=== PATIENT | female | born 1970 | race African-American/Black ===

== ENCOUNTER 2017-01-09 13:46 | Emergency (ER) | payer MEDICAID ==
[~2017-01-09] VITALS: Ht 175.3 cm; Wt 119.0 kg
[~2017-01-09 13:46] MED LIST: ATEN100T PO; FURO-152 PO; GABA300T25 PO; LORA-250 PO
[2017-01-09] MEDS ORDERED: MORPHINE SULFATE 4 MG/ML CPJ (NOT FOR IM USE) IV STA (15:51)
[2017-01-09] MEDS ORDERED: ONDANSETRON HCL 4MG/2ML VIAL IV STA (15:51)
[2017-01-09] MEDS ORDERED: SODIUM CHLORIDE 0.9% 1000ML BAG (SEPSIS BOLUS) IV ONE (16:00)
[2017-01-09 16:19] LABS: BASOPHILS % 0.7 % (0.0-2.0); EOSINOPHILS % 0.5 % (0.0-5.0); HEMOGLOBIN. 9.5 g/dL (12.0-16.0); MEAN CORPUSCULAR HEMOGLOBIN 21.2 pg (28.0-32.0); MEAN CORPUSCULAR HGB CONC 30.7 g/dL (31.0-37.0); MEAN PLATELET VOLUME 8.3 fl (7.4-10.4); NEUTROPHILS % 77.8 % (40.0-76.0); PLATELET 283 x1000/uL (130-400); RED CELL DISTRIBUTION WIDTH 18.1 % (11.6-14.6); WHITE BLOOD COUNT 7.8 x1000/uL (4.5-11.0)
[2017-01-09 16:20] LABS: CHLORIDE 106 mEq/L (98-107); INDEX HEMOLYSI 1 (1-3); INDEX ICTERIC 1 (1-4); INDEX LIPEMIC 1 (1-3)
[2017-01-09 16:22] LABS: PROTHROMBIN TIME 10.8 sec
[2017-01-09 16:24] LABS: ALBUMIN 3.3 g/dL (3.4-5.0); ANION GAP 12; CALCIUM 8.8 mg/dL (8.5-10.1); CARBON DIOXIDE 26 mEq/L (21-32); UREA NITROGEN BLOOD 6 mg/dL (7-21)
[2017-01-09 16:25] LABS: HCG SCREEN NEGATIVE
[2017-01-09 16:26] LABS: ADD RBC MORPHOLOGY YES; DIFFERENTIAL COMMENT 1
[2017-01-09 16:29] LABS: ALANINE AMINOTRANSFERASE 13 IU/L (13-61); eGFR > 60 mL/min (>60)
[2017-01-09 17:02] LABS: ANISOCYTOSIS 1+
[2017-01-09 17:04] LABS: HYPOCHROMASIA 2+
[2017-01-09 17:05] LABS: PLATELET ESTIMATE NORMAL
[2017-01-09] MEDS ORDERED: MORPHINE SULFATE 4 MG/ML CPJ (NOT FOR IM USE) IV ONE (19:15)
[2017-01-09] MEDS ORDERED: DIPHENHYDRAMINE 50MG/ML VIAL IV ONE (19:15)
[2017-01-09] MEDS ORDERED: CEFTRIAXONE 1 G PREMIX 50 ML IV ONE (20:00)
[2017-01-09] MEDS ORDERED: MORPHINE SULFATE 2 MG/ML CPJ (NOT FOR IM USE) IV ONE (20:45)
[2017-01-09 20:50] VITALS: BP 147/90
== END 2017-01-09 21:20 | disposition home or self-care (01) ==
LOC: ER 14:52
DX: L03.116 Cellulitis of left lower limb (principal); L89.899 Pressure ulcer of other site, unspecified stage; I87.8 Other specified disorders of veins; I10 Essential (primary) hypertension; D68.59 Other primary thrombophilia; Z86.718 Personal history of other venous thrombosis and embolism; Z79.01 Long term (current) use of anticoagulants; Z79.899 Other long term (current) drug therapy; Z88.6 Allergy status to analgesic agent; Z98.84 Bariatric surgery status; Z90.49 Acquired absence of other specified parts of digestive tract
CPT/HCPCS: 36415; 71010; 73590; 80053; 83605; 84703; 85025; 85610; 87040; 87070; 87077; 87186; 87205; 93005; 96361; 96365; 96375; 96376; 99285; J0696; J1200; J2270; J2405; J7030; X7700; Z7610

== ENCOUNTER 2017-06-08 14:25 | Inpatient (IN) | payer MEDICAID ==
[~2017-06-08] VITALS: Ht 175.3 cm; Wt 135.2 kg
[~2017-06-08 14:25] MED LIST changes: +HYDR-519 PO; +RIVA20TA PO
[2017-06-08 19:03] LABS: BASOPHILS % 0.5 % (0.0-2.0); EOSINOPHILS % 0.3 % (0.0-5.0); HEMATOCRIT. 32.2 % (36.0-48.0); HEMOGLOBIN. 10.2 g/dL (12.0-16.0); LYMPHOCYTES % 12.4 % (20.0-50.0); MEAN CORPUSCULAR HEMOGLOBIN 22.9 pg (28.0-32.0); MEAN PLATELET VOLUME 7.8 fl (7.4-10.4); MONOCYTES % 7.3 % (2.0-8.0); NEUTROPHILS % 79.5 % (40.0-76.0); PLATELET 335 x1000/uL (130-400); RED BLOOD CELL COUNT 4.48 mill/uL (4.2-5.4); RED CELL DISTRIBUTION WIDTH 19.7 % (11.6-14.6)
[2017-06-08 19:09] LABS: PROTHROMBIN TIME 10.9 sec (9.4-11.6)
[2017-06-08 19:16] LABS: CARBON DIOXIDE 27 mEq/L (21-32); CHLORIDE 104 mEq/L (98-107)
[2017-06-08] MEDS ORDERED: ONDANSETRON HCL 4MG/2ML VIAL IV STA (19:45)
[2017-06-08] MEDS ORDERED: MORPHINE SULFATE 4 MG/ML CPJ (NOT FOR IM USE) IV STA (19:45)
[2017-06-08] MEDS ORDERED: DIPHENHYDRAMINE 50MG/ML VIAL IV ONE (20:00)
[2017-06-08] MEDS ORDERED: CLINDAMYCIN 600 MG in DEXTROSE 5% WATER 50 ML IV ONE (21:00)
[2017-06-08] MEDS ORDERED: PIPERACILLIN SODIUM/TAZOBACTAM 4.5 G in DEXT 5% WATER 100 ML IV SCH (21:00)
[2017-06-08] MEDS ORDERED: MORPHINE SULFATE 4 MG/ML CPJ (NOT FOR IM USE) IV ONE (22:45)
[2017-06-09] MEDS: MORPHINE SULFATE 2 MG/ML CPJ (NOT FOR IM USE) IV PRN ×4 (04:31→22:49)
[2017-06-09 05:00] VITALS: BP 146/77
[2017-06-09] MEDS: CLINDAMYCIN IV SCH ×3 (07:04→22:42)
[2017-06-09] MEDS: DEXTROSE 5% IV SCH ×3 (07:04→22:42)
[2017-06-09] MEDS: WATER IV SCH ×3 (07:04→22:42)
[2017-06-09] MEDS: HYDROCODONE/ACETAMINOPHEN 10/325MG TABLET PO PRN (07:15)
[2017-06-09 08:00] VITALS: BP 122/73
[2017-06-09] MEDS: RIVAROXABAN 20 MG TABLET PO SCH (08:55)
[2017-06-09] MEDS: ATENOLOL 100 MG TABLET PO SCH (08:55)
[2017-06-09 12:00] VITALS: BP 122/77
[2017-06-09] MEDS ORDERED: KETOROLAC 30MG/ML VIAL IV PRN (15:45)
[2017-06-09 16:00] VITALS: BP 134/76
[2017-06-09] MEDS: DIPHENHYDRAMINE 50MG/ML VIAL IV PRN ×2 (16:06→22:50)
[2017-06-09 20:00] VITALS: BP 119/64
[2017-06-10] VITALS: BP 120/78
[2017-06-10] MEDS: DIPHENHYDRAMINE 50MG/ML VIAL IV PRN ×4 (03:05→21:24)
[2017-06-10] MEDS: MORPHINE SULFATE 2 MG/ML CPJ (NOT FOR IM USE) IV PRN ×5 (03:05→21:08)
[2017-06-10 04:00] VITALS: BP 123/69
[2017-06-10 06:12] VITALS: BP 123/69
[2017-06-10] MEDS: WATER IV SCH ×3 (06:12→21:41)
[2017-06-10] MEDS: CLINDAMYCIN IV SCH ×3 (06:12→21:41)
[2017-06-10] MEDS: DEXTROSE 5% IV SCH ×3 (06:12→21:41)
[2017-06-10 08:00] VITALS: BP 149/86
[2017-06-10] MEDS: RIVAROXABAN 20 MG TABLET PO SCH (08:26)
[2017-06-10] MEDS: ATENOLOL 100 MG TABLET PO SCH (08:30)
[2017-06-10] MEDS: HYDROCODONE/ACETAMINOPHEN 10/325MG TABLET PO PRN (14:20)
[2017-06-10 16:00] VITALS: BP 134/74
[2017-06-10 20:00] VITALS: BP 124/78
[2017-06-10] MEDS: SODIUM HYPOCHLORITE (0.25%) 480ML SOLUTION (HALF STRENGTH) TOP SCH (21:00)
[2017-06-10] MEDS: SILVER SULFADIAZINE 1% CREAM 50GM TOP SCH (21:00)
[2017-06-11] VITALS: BP 128/88
[2017-06-11] MEDS: MORPHINE SULFATE 2 MG/ML CPJ (NOT FOR IM USE) IV PRN ×5 (02:58→21:10)
[2017-06-11] MEDS: DIPHENHYDRAMINE 50MG/ML VIAL IV PRN ×4 (02:59→21:09)
[2017-06-11 04:00] VITALS: BP 115/58
[2017-06-11] MEDS: DEXTROSE 5% IV SCH ×3 (06:23→21:30)
[2017-06-11] MEDS: WATER IV SCH ×3 (06:23→21:30)
[2017-06-11] MEDS: CLINDAMYCIN IV SCH ×3 (06:23→21:30)
[2017-06-11 08:00] VITALS: BP 136/78
[2017-06-11] MEDS: RIVAROXABAN 20 MG TABLET PO SCH ×3 (08:21→17:03)
[2017-06-11] MEDS: ATENOLOL 100 MG TABLET PO SCH (08:22)
[2017-06-11] MEDS: SILVER SULFADIAZINE 1% CREAM 50GM TOP SCH (13:00)
[2017-06-11] MEDS: SODIUM HYPOCHLORITE (0.25%) 480ML SOLUTION (HALF STRENGTH) TOP SCH (13:17)
[2017-06-11] MEDS: HYDROCODONE/ACETAMINOPHEN 10/325MG TABLET PO PRN ×2 (13:27→18:09)
[2017-06-11 16:00] VITALS: BP 127/74
[2017-06-11 20:00] VITALS: BP 140/76
[2017-06-12] VITALS: BP 126/60
[2017-06-12] MEDS: MORPHINE SULFATE 2 MG/ML CPJ (NOT FOR IM USE) IV PRN ×5 (01:06→20:54)
[2017-06-12] MEDS: HYDROCODONE/ACETAMINOPHEN 10/325MG TABLET PO PRN ×4 (01:07→20:40)
[2017-06-12 04:00] VITALS: BP 135/80
[2017-06-12] MEDS: CLINDAMYCIN IV SCH ×2 (05:54→15:37)
[2017-06-12] MEDS: WATER IV SCH ×2 (05:54→15:37)
[2017-06-12] MEDS: DIPHENHYDRAMINE 50MG/ML VIAL IV PRN ×3 (05:54→20:47)
[2017-06-12] MEDS: DEXTROSE 5% IV SCH ×2 (05:54→15:37)
[2017-06-12 07:18] LABS: BASOPHILS % 0.4 % (0.0-2.0); EOSINOPHILS % 3.9 % (0.0-5.0); HEMATOCRIT. 29.6 % (36.0-48.0); HEMOGLOBIN. 9.4 g/dL (12.0-16.0); LYMPHOCYTES % 17.3 % (20.0-50.0); MEAN CORPUSCULAR HEMOGLOBIN 23.2 pg (28.0-32.0); MEAN CORPUSCULAR VOLUME 72.5 fL (81.0-99.0); MEAN PLATELET VOLUME 7.9 fl (7.4-10.4); MONOCYTES % 13.3 % (2.0-8.0); NEUTROPHILS % 65.1 % (40.0-76.0); PLATELET 286 x1000/uL (130-400); RED BLOOD CELL COUNT 4.08 mill/uL (4.2-5.4); RED CELL DISTRIBUTION WIDTH 18.9 % (11.6-14.6)
[2017-06-12 07:34] LABS: CARBON DIOXIDE 28 mEq/L (21-32); CHLORIDE 102 mEq/L (98-107)
[2017-06-12 08:00] VITALS: BP 123/76
[2017-06-12] MEDS: SODIUM HYPOCHLORITE (0.25%) 480ML SOLUTION (HALF STRENGTH) TOP SCH (09:00)
[2017-06-12] MEDS: SILVER SULFADIAZINE 1% CREAM 50GM TOP SCH (09:00)
[2017-06-12] MEDS: ATENOLOL 100 MG TABLET PO SCH (09:03)
[2017-06-12] MEDS: RIVAROXABAN 20 MG TABLET PO SCH (09:03)
[2017-06-12 12:00] VITALS: BP 120/80
[2017-06-12] MEDS ORDERED: CYCLOBENZAPRINE 10MG TABLET PO PRN (12:30)
[2017-06-12] MEDS: GABAPENTIN 300MG CAPSULE PO SCH ×2 (15:35→23:19)
[2017-06-12] MEDS ORDERED: MEROPENEM 500 MG in SODIUM CHLORIDE 0.9% 50 ML IV SCH (15:45)
[2017-06-12 16:00] VITALS: BP 116/62
[2017-06-12 20:00] VITALS: BP 117/70
[2017-06-12] MEDS: CEFEPIME 2,000 MG in DEXT 5% WATER 100 ML IV SCH (23:20)
[2017-06-13] VITALS: BP 125/71
[2017-06-13] MEDS: MORPHINE SULFATE 2 MG/ML CPJ (NOT FOR IM USE) IV PRN ×5 (01:02→20:33)
[2017-06-13] MEDS: HYDROCODONE/ACETAMINOPHEN 10/325MG TABLET PO PRN ×4 (02:00→18:04)
[2017-06-13 04:00] VITALS: BP 138/79
[2017-06-13] MEDS: GABAPENTIN 300MG CAPSULE PO SCH ×2 (05:41→20:31)
[2017-06-13] MEDS: DIPHENHYDRAMINE 50MG/ML VIAL IV PRN ×2 (05:50→15:32)
[2017-06-13] MEDS: CEFEPIME 2,000 MG in DEXT 5% WATER 100 ML IV SCH ×2 (05:52→17:50)
[2017-06-13 08:00] VITALS: BP 110/67
[2017-06-13] MEDS: SODIUM HYPOCHLORITE (0.25%) 480ML SOLUTION (HALF STRENGTH) TOP SCH (08:51)
[2017-06-13] MEDS: SILVER SULFADIAZINE 1% CREAM 50GM TOP SCH (08:52)
[2017-06-13] MEDS: ATENOLOL 100 MG TABLET PO SCH (09:00)
[2017-06-13] MEDS: RIVAROXABAN 20 MG TABLET PO SCH (10:03)
[2017-06-13 12:00] VITALS: BP 123/75
[2017-06-13] MEDS ORDERED: SODIUM BICARBONATE 4% (2.4MEQ) 5ML VIAL IV ONE (14:27)
[2017-06-13] MEDS ORDERED: LIDOCAINE HCL 1% 20ML VIAL (Pyxis) INJ ONE (14:27)
[2017-06-13 16:00] VITALS: BP 125/82
[2017-06-13 20:00] VITALS: BP 140/82
[2017-06-14] VITALS: BP 113/57
[2017-06-14 04:00] VITALS: BP 135/85
[2017-06-14] MEDS: DIPHENHYDRAMINE 50MG/ML VIAL IV PRN ×2 (04:49→18:05)
[2017-06-14] MEDS: MORPHINE SULFATE 2 MG/ML CPJ (NOT FOR IM USE) IV PRN ×5 (04:54→22:49)
[2017-06-14] MEDS: GABAPENTIN 300MG CAPSULE PO SCH ×3 (05:11→22:48)
[2017-06-14] MEDS: CEFEPIME 2,000 MG in DEXT 5% WATER 100 ML IV SCH ×2 (05:11→17:58)
[2017-06-14 08:00] VITALS: BP 105/75
[2017-06-14] MEDS: RIVAROXABAN 20 MG TABLET PO SCH (08:47)
[2017-06-14] MEDS: ATENOLOL 100 MG TABLET PO SCH (08:47)
[2017-06-14] MEDS: SILVER SULFADIAZINE 1% CREAM 50GM TOP SCH (08:52)
[2017-06-14] MEDS: SODIUM HYPOCHLORITE (0.25%) 480ML SOLUTION (HALF STRENGTH) TOP SCH (09:00)
[2017-06-14] MEDS ORDERED: HYDROCODONE/ACETAMINOPHEN 10/325MG TABLET PO PRN (10:45)
[2017-06-14] MEDS ORDERED: LORAZEPAM 2MG/ML CPJ IV NR (10:51)
[2017-06-14] MEDS ORDERED: SODIUM CHLORIDE 0.9% 10ML VIAL ONE (12:12)
[2017-06-14] MEDS ORDERED: IOHEXOL-350 100 ML BOTTLE ONE (12:12)
[2017-06-14] MEDS: CYCLOBENZAPRINE 10MG TABLET PO PRN ×2 (12:39→22:49)
[2017-06-14 12:48] VITALS: BP 110/69
[2017-06-14 17:21] VITALS: BP 130/75
[2017-06-14 20:00] VITALS: BP 126/76
[2017-06-15] MEDS: DIPHENHYDRAMINE 50MG/ML VIAL IV PRN ×3 (00:41→17:51)
[2017-06-15] MEDS: MORPHINE SULFATE 2 MG/ML CPJ (NOT FOR IM USE) IV PRN ×4 (04:33→17:20)
[2017-06-15 04:35] VITALS: BP 121/76
[2017-06-15] MEDS: CEFEPIME 2,000 MG in DEXT 5% WATER 100 ML IV SCH ×2 (06:00→17:19)
[2017-06-15] MEDS: GABAPENTIN 300MG CAPSULE PO SCH ×2 (07:51→13:14)
[2017-06-15] MEDS: RIVAROXABAN 20 MG TABLET PO SCH (08:27)
[2017-06-15] MEDS: ATENOLOL 100 MG TABLET PO SCH (08:27)
[2017-06-15] MEDS ORDERED: GABA300T25 PO (08:45)
[2017-06-15] MEDS ORDERED: CYCL10TA7 PO (08:45)
[2017-06-15] MEDS: CYCLOBENZAPRINE 10MG TABLET PO PRN (08:54)
[2017-06-15 09:00] VITALS: BP 124/74
[2017-06-15] MEDS: SILVER SULFADIAZINE 1% CREAM 50GM TOP SCH (10:33)
[2017-06-15] MEDS: SODIUM HYPOCHLORITE (0.25%) 480ML SOLUTION (HALF STRENGTH) TOP SCH (10:34)
[2017-06-15 12:50] VITALS: BP 125/79
[2017-06-15 17:12] VITALS: BP 121/58
[2017-06-15 18:51] VITALS: BP 121/73
== END 2017-06-15 19:15 | disposition home health service (06) | DRG 383 ==
LOC: ER 19:44 → 6EST 23:10 → ENRESERV 06-09 00:54
PROVIDERS: ADMIT Internal Medicine; ATTEND Internal Medicine
PROC: 02HV33Z Insertion of Infusion Device into Superior Vena Cava, Percutaneous Approach (ICD-10-PCS; principal; 2017-06-13)
PROC: B548ZZA Ultrasonography of Superior Vena Cava, Guidance (ICD-10-PCS; 2017-06-13)
PROC: B5181ZA Fluoroscopy of Superior Vena Cava using Low Osmolar Contrast, Guidance (ICD-10-PCS; 2017-06-13)
DX: L03.116 Cellulitis of left lower limb (principal); D68.59 Other primary thrombophilia; L97.929 Non-pressure chronic ulcer of unspecified part of left lower leg with unspecified severity; E44.1 Mild protein-calorie malnutrition; Z68.41 Body mass index [BMI] 40.0-44.9, adult; I73.9 Peripheral vascular disease, unspecified; I87.2 Venous insufficiency (chronic) (peripheral); I10 Essential (primary) hypertension; E66.9 Obesity, unspecified; Z91.19 Patient's noncompliance with other medical treatment and regimen; Z88.1 Allergy status to other antibiotic agents; Z86.711 Personal history of pulmonary embolism; Z86.718 Personal history of other venous thrombosis and embolism; Z88.6 Allergy status to analgesic agent; Z79.899 Other long term (current) drug therapy; Z79.01 Long term (current) use of anticoagulants; Z90.49 Acquired absence of other specified parts of digestive tract; Z98.84 Bariatric surgery status
CPT/HCPCS: 36415; 36569; 73590; 75635; 76937; 77001; 80048; 80053; 85025; 85610; 87040; 87070; 87077; 87186; 87205; 96365; 96367; 96375; 96376; 99285; A4216; C1725; C1893; J0692; J1200; J2060; J2270; J2405; J2543; J3490; J7040; J7050; J7060; Q9967

== ENCOUNTER 2017-07-14 09:38 | Emergency (ER) | payer MEDICAID ==
[~2017-07-14] VITALS: Ht 162.6 cm; Wt 68.0 kg
[~2017-07-14 09:38] MED LIST changes: +CYCL10TA7 PO
[2017-07-14] MEDS ORDERED: MORPHINE SULFATE 4 MG/ML CPJ (NOT FOR IM USE) IV STA (09:58)
[2017-07-14] MEDS ORDERED: ONDANSETRON HCL 4MG/2ML VIAL IV STA (09:58)
[2017-07-14] MEDS ORDERED: SODIUM CHLORIDE 0.9% 1,000 ML IV ONE (09:58)
[2017-07-14 10:20] LABS: BASOPHILS % 1.4 % (0.0-2.0); EOSINOPHILS % 7.7 % (0.0-5.0); HEMATOCRIT. 32.2 % (36.0-48.0); HEMOGLOBIN. 10.2 g/dL (12.0-16.0); LYMPHOCYTES % 29.7 % (20.0-50.0); MEAN CORPUSCULAR HEMOGLOBIN 23.3 pg (28.0-32.0); MEAN CORPUSCULAR VOLUME 73.4 fL (81.0-99.0); MEAN PLATELET VOLUME 8.6 fl (7.4-10.4); MONOCYTES % 13.7 % (2.0-8.0); NEUTROPHILS % 47.5 % (40.0-76.0); PLATELET 257 x1000/uL (130-400); RED BLOOD CELL COUNT 4.38 mill/uL (4.2-5.4); RED CELL DISTRIBUTION WIDTH 20.1 % (11.6-14.6)
[2017-07-14 10:30] LABS: PARTIAL THROMBOPLASTIN TIME 26.3 sec (23.4-31.0); PROTHROMBIN TIME 10.7 sec (9.4-11.6)
[2017-07-14 10:39] LABS: CARBON DIOXIDE 27 mEq/L (21-32); CHLORIDE 101 mEq/L (98-107); TROPONIN I < 0.02 ng/mL (0.00-0.04)
[2017-07-14] MEDS ORDERED: HYDROMORPHONE HCL/PF 2MG/ML CPJ IV ONE (11:15)
[2017-07-14] MEDS ORDERED: IOHEXOL-350 100 ML BOTTLE ONE (11:30)
[2017-07-14] MEDS ORDERED: SODIUM CHLORIDE 0.9% 10ML VIAL ONE (11:30)
[2017-07-14 15:12] VITALS: BP 137/76
== END 2017-07-14 17:26 | disposition left against medical advice (07) ==
LOC: ER 09:38 → EDBEDREQ 14:26 → ENRESERV 15:41 → CANRESERV 15:41 → ER 17:26 → ENRESERV 07-15 02:06 → CANRESERV 07-15 02:06 → CANBEDREQ 07-15 07:00
DX: R07.9 Chest pain, unspecified (principal); I10 Essential (primary) hypertension; G62.9 Polyneuropathy, unspecified; D68.59 Other primary thrombophilia; Z98.84 Bariatric surgery status; Z90.49 Acquired absence of other specified parts of digestive tract; Z88.6 Allergy status to analgesic agent; Z88.1 Allergy status to other antibiotic agents; Z86.711 Personal history of pulmonary embolism; Z86.718 Personal history of other venous thrombosis and embolism; Z79.01 Long term (current) use of anticoagulants
CPT/HCPCS: 36415; 71010; 71275; 80053; 83605; 83880; 84484; 85025; 85610; 85730; 87040; 93005; 93970; 96361; 96374; 96375; 99285; A4216; J1170; J2270; J2405; J7030; Q9967

== ENCOUNTER 2017-07-16 08:02 | Emergency (ER) | payer MEDICAID ==
[~2017-07-16] VITALS: Ht 175.3 cm; Wt 121.0 kg
[2017-07-16] MEDS ORDERED: MORPHINE SULFATE 4 MG/ML CPJ (NOT FOR IM USE) IV STA (08:56)
[2017-07-16] MEDS ORDERED: ONDANSETRON HCL 4MG/2ML VIAL IV STA (08:56)
[2017-07-16 09:31] LABS: BASOPHILS % 0.5 % (0.0-2.0); EOSINOPHILS % 4.1 % (0.0-5.0); HEMATOCRIT. 30.1 % (36.0-48.0); HEMOGLOBIN. 9.5 g/dL (12.0-16.0); LYMPHOCYTES % 21.8 % (20.0-50.0); MEAN CORPUSCULAR HEMOGLOBIN 23.3 pg (28.0-32.0); MEAN CORPUSCULAR VOLUME 74.1 fL (81.0-99.0); MEAN PLATELET VOLUME 8.1 fl (7.4-10.4); MONOCYTES % 6.2 % (2.0-8.0); NEUTROPHILS % 67.4 % (40.0-76.0); PLATELET 194 x1000/uL (130-400); RED BLOOD CELL COUNT 4.07 mill/uL (4.2-5.4); RED CELL DISTRIBUTION WIDTH 19.8 % (11.6-14.6)
[2017-07-16 09:46] LABS: CARBON DIOXIDE 28 mEq/L (21-32); CHLORIDE 106 mEq/L (98-107); TROPONIN I < 0.02 ng/mL (0.00-0.04)
[2017-07-16] MEDS ORDERED: DIPHENHYDRAMINE 50MG/ML VIAL ONE (10:57)
[2017-07-16] MEDS ORDERED: DIPHENHYDRAMINE 50MG/ML VIAL IV ONE (11:00)
[2017-07-16 12:21] VITALS: BP 132/78
== END 2017-07-16 12:24 | disposition home or self-care (01) ==
LOC: ER 08:30
DX: R07.81 Pleurodynia (principal); I10 Essential (primary) hypertension; J84.9 Interstitial pulmonary disease, unspecified; Z86.711 Personal history of pulmonary embolism; Z86.718 Personal history of other venous thrombosis and embolism; Z79.01 Long term (current) use of anticoagulants; Z98.84 Bariatric surgery status; Z88.6 Allergy status to analgesic agent; Z88.3 Allergy status to other anti-infective agents; Z79.899 Other long term (current) drug therapy
CPT/HCPCS: 36415; 71010; 80053; 81025; 84484; 85025; 93005; 96374; 96375; 99285; J1200; J2270; J2405; Z7610

== ENCOUNTER 2017-11-05 11:39 | Emergency (ER) | payer MEDICAID, OTHER ==
[~2017-11-05] VITALS: Ht 175.3 cm; Wt 121.0 kg
[2017-11-05] MEDS ORDERED: ONDANSETRON HCL 4MG/2ML VIAL IV STA (14:32)
[2017-11-05] MEDS ORDERED: MORPHINE SULFATE 4 MG/ML CPJ (NOT FOR IM USE) IV STA (14:32)
[2017-11-05] MEDS ORDERED: SODIUM CHLORIDE 0.9% 1,000 ML IV ONE (14:32)
[2017-11-05 15:00] VITALS: BP 142/84
[2017-11-05 15:09] LABS: BASOPHILS % 0.6 % (0.0-2.0); EOSINOPHILS % 0.7 % (0.0-5.0); HEMATOCRIT. 29.5 % (36.0-48.0); HEMOGLOBIN. 9.1 g/dL (12.0-16.0); LYMPHOCYTES % 13.8 % (20.0-50.0); MEAN CORPUSCULAR HEMOGLOBIN 22.9 pg (28.0-32.0); MEAN CORPUSCULAR VOLUME 73.9 fL (81.0-99.0); MEAN PLATELET VOLUME 7.7 fl (7.4-10.4); MONOCYTES % 10.2 % (2.0-8.0); NEUTROPHILS % 74.7 % (40.0-76.0); PLATELET 289 x1000/uL (130-400); RED CELL DISTRIBUTION WIDTH 17.8 % (11.6-14.6)
[2017-11-05 15:13] LABS: CHLORIDE 106 mEq/L (98-107)
[2017-11-05 15:15] LABS: INR 1.1; PARTIAL THROMBOPLASTIN TIME 26.7 sec (23.4-31.0); PROTHROMBIN TIME 11.1 sec (9.4-11.6)
== END 2017-11-05 17:15 | disposition home or self-care (01) ==
LOC: ER 11:39
DX: L97.209 Non-pressure chronic ulcer of unspecified calf with unspecified severity (principal); I10 Essential (primary) hypertension; Z88.1 Allergy status to other antibiotic agents; Z88.6 Allergy status to analgesic agent; Z90.49 Acquired absence of other specified parts of digestive tract; Z98.84 Bariatric surgery status; Z86.718 Personal history of other venous thrombosis and embolism
CPT/HCPCS: 36415; 80053; 83605; 85025; 85610; 85730; 87040; 96361; 96374; 96375; 99284; J2270; J2405; J7030; 87086

== ENCOUNTER 2018-07-10 11:16 | Inpatient (IN) | payer OTHER ==
[~2018-07-10] VITALS: Ht 175.3 cm; Wt 117.9 kg
[2018-07-10] MEDS ORDERED: SODIUM CHLORIDE 0.9% 1,000 ML IV ONE (16:06)
[2018-07-10] MEDS ORDERED: ONDANSETRON HCL 4MG/2ML INJ IV STA ×2 (16:06→21:50)
[2018-07-10] MEDS ORDERED: MORPHINE SULFATE 4 MG/ML CPJ (NOT FOR IM USE) IV STA ×3 (16:06→21:50)
[2018-07-10] MEDS ORDERED: CLINDAMYCIN 600 MG in DEXTROSE 5% WATER 50 ML IV ONE (16:15)
[2018-07-10] MEDS ORDERED: PIPERACILLIN/TAZ 3.375G PREMIX 50 ML IV ONE (16:15)
[2018-07-10] MEDS ORDERED: DIPHENHYDRAMINE 50MG/ML VIAL IV ONE (16:15)
[2018-07-10] MEDS ORDERED: CLONIDINE 0.1MG TABLET PO ONE (16:15)
[2018-07-10 16:36] LABS: BASOPHILS % 0.4 % (0.0-2.0); EOSINOPHILS % 0.3 % (0.0-5.0); HEMATOCRIT. 31.1 % (36.0-48.0); HEMOGLOBIN. 9.8 g/dL (12.0-16.0); LYMPHOCYTES % 22.5 % (20.0-50.0); MEAN CORPUSCULAR HEMOGLOBIN 22.1 pg (28.0-32.0); MEAN CORPUSCULAR VOLUME 69.9 fL (81.0-99.0); MEAN PLATELET VOLUME 8.4 fl (7.4-10.4); MONOCYTES % 7.7 % (2.0-8.0); NEUTROPHILS % 69.1 % (40.0-76.0); PLATELET 338 x1000/uL (130-400); RED BLOOD CELL COUNT 4.45 mill/uL (4.2-5.4); RED CELL DISTRIBUTION WIDTH 17.9 % (11.6-14.6)
[2018-07-10 16:40] LABS: CHLORIDE 104 mEq/L (98-107)
[2018-07-10 16:41] LABS: INR 1.1; PROTHROMBIN TIME 10.6 sec (9.1-11.1)
[2018-07-10 17:05] LABS: PLATELET ESTIMATE NORMAL
[2018-07-10 18:06] LABS: CLARITY URINE CLOUDY (CLEAR); COLOR URINE YELLOW (YELLOW); KETONES URINE TRACE (NEGATIVE); LEUKOCYTE ESTERASE URINE NEGATIVE (NEGATIVE); NITRITE URINE NEGATIVE (NEGATIVE); OCCULT BLOOD URINE NEGATIVE (NEGATIVE); PROTEIN URINE 1+ (NEGATIVE); SPECIFIC GRAVITY URINE 1.024 (1.005-1.030)
[2018-07-10] MEDS ORDERED: KETOROLAC 30MG/ML VIAL IV ONE (18:30)
[2018-07-10] MEDS ORDERED: ONDANSETRON HCL 4MG/2ML INJ IV ONE (18:30)
[2018-07-10] MEDS ORDERED: MORPHINE SULFATE 4 MG/ML CPJ (NOT FOR IM USE) IV ONE (18:30)
[2018-07-10 23:00] VITALS: BP 149/74
[2018-07-10] MEDS ORDERED: METO-539 PO (23:26)
[2018-07-10] MEDS ORDERED: TIZA4CAP6 PO (23:26)
[2018-07-10] MEDS ORDERED: FURO40TA5 PO (23:26)
[2018-07-10] MEDS ORDERED: RIVA20TA PO (23:26)
[2018-07-10] MEDS ORDERED: GABA-290 PO (23:26)
[2018-07-10] MEDS: MORPHINE SULFATE 4 MG/ML CPJ (NOT FOR IM USE) IV PRN (23:52)
[2018-07-11] VITALS (7 sets, daily range): BP systolic 130–149; BP diastolic 66–94
[2018-07-11] MEDS: DIPHENHYDRAMINE 50MG/ML VIAL IV PRN ×3 (04:45→23:37)
[2018-07-11] MEDS: MORPHINE SULFATE 4 MG/ML CPJ (NOT FOR IM USE) IV PRN ×5 (04:45→22:26)
[2018-07-11] MEDS: CLINDAMYCIN 900 MG in DEXTROSE 5% WATER 50 ML IV SCH ×3 (06:39→21:26)
[2018-07-11 06:41] LABS: BASOPHILS % 0.3 % (0.0-2.0); EOSINOPHILS % 0.3 % (0.0-5.0); HEMATOCRIT. 28.1 % (36.0-48.0); HEMOGLOBIN. 8.7 g/dL (12.0-16.0); LYMPHOCYTES % 10.1 % (20.0-50.0); MEAN CORPUSCULAR HEMOGLOBIN 21.6 pg (28.0-32.0); MEAN CORPUSCULAR VOLUME 69.9 fL (81.0-99.0); MEAN PLATELET VOLUME 8.3 fl (7.4-10.4); MONOCYTES % 5.1 % (2.0-8.0); NEUTROPHILS % 84.2 % (40.0-76.0); PLATELET 243 x1000/uL (130-400); RED BLOOD CELL COUNT 4.01 mill/uL (4.2-5.4); RED CELL DISTRIBUTION WIDTH 17.9 % (11.6-14.6)
[2018-07-11 06:44] LABS: CHLORIDE 105 mEq/L (98-107)
[2018-07-11] MEDS ORDERED: MEDICATION NOT ON FORMULARY EA (Rivaroxaban (Xarelto) 20 MG) PO SCH (09:00)
[2018-07-11] MEDS ORDERED: MEDICATION NOT ON FORMULARY EA (Gabapentin 600 MG) PO SCH (09:00)
[2018-07-11] MEDS: GABAPENTIN 300MG CAPSULE PO SCH ×3 (09:02→17:00)
[2018-07-11] MEDS ORDERED: HYDROCODONE/ACETAMINOPHEN 5/325MG TABLET PO PRN (11:45)
[2018-07-12] MEDS: MORPHINE SULFATE 4 MG/ML CPJ (NOT FOR IM USE) IV PRN ×4 (02:51→20:03)
[2018-07-12 04:00] VITALS: BP 143/72
[2018-07-12] MEDS: CLINDAMYCIN 900 MG in DEXTROSE 5% WATER 50 ML IV SCH ×3 (05:00→21:45)
[2018-07-12] MEDS ORDERED: TRIAMCINOLONE ACETONIDE 40MG/ML 1ML VIAL ONE (06:53)
[2018-07-12] MEDS ORDERED: DEXAMETHASONE 4MG/ML 1ML VIAL ONE ×2 (06:54→07:49)
[2018-07-12] MEDS ORDERED: BUPIVACAINE HCL/PF 0.5% (5MG/ML) 10ML ONE (06:54)
[2018-07-12] MEDS ORDERED: BACITRACIN ZINC 15GM TUBE TOP ONE (06:54)
[2018-07-12] MEDS ORDERED: NORMAL SALINE 0.9% 10 ML SYR ONE (06:54)
[2018-07-12] MEDS ORDERED: LIDOCAINE HCL 1% 10 MG/ML 10ML VIAL ONE (06:54)
[2018-07-12] MEDS ORDERED: GENTAMICIN SULF 40MG/ML 2ML VIAL ONE (06:54)
[2018-07-12] MEDS ORDERED: BACITRACIN 50,000 UNITS/VIAL ONE (06:55)
[2018-07-12] MEDS ORDERED: BUPIVACAINE HCL/EPINEPHRINE/PF 0.5%/0.0005 10ML ONE (07:09)
[2018-07-12] MEDS ORDERED: LIDOCAINE HCL/EPINEPHRINE 1%-EPI 1:100,000 20 ML VIAL ONE (07:10)
[2018-07-12] MEDS ORDERED: FENTANYL CITRATE/PF 50MCG/ML 2ML VIAL ONE ×2 (07:38→07:51)
[2018-07-12] MEDS ORDERED: PROPOFOL 200MG/20ML VIAL IV ONE ×2 (07:38→07:57)
[2018-07-12] MEDS ORDERED: MIDAZOLAM HCL 2 MG/2 ML VIAL ONE ×2 (07:39→07:51)
[2018-07-12] MEDS ORDERED: ONDANSETRON HCL 4MG/2ML INJ ONE (07:49)
[2018-07-12] MEDS ORDERED: MEPERIDINE HCL/PF 25MG/ML CPJ IV PRN (08:00)
[2018-07-12] MEDS ORDERED: ONDANSETRON HCL 4MG/2ML INJ IV PRN (08:00)
[2018-07-12] MEDS ORDERED: LABETALOL 5MG/ML SYR 20 MG/4 ML SYRINGE IV PRN (08:00)
[2018-07-12] MEDS ORDERED: LABETALOL HCL 5MG/ML VIAL 20ML IV ONE (08:01)
[2018-07-12] MEDS: HYDROMORPHONE HCL/PF 2MG/ML CPJ IV PRN ×4 (08:25→09:20)
[2018-07-12] MEDS ORDERED: AMLODIPINE 5MG TABLET PO SCH (09:00)
[2018-07-12 10:00] VITALS: BP 159/86
[2018-07-12] MEDS: GABAPENTIN 300MG CAPSULE PO SCH ×3 (10:17→17:08)
[2018-07-12] MEDS: DIPHENHYDRAMINE 50MG/ML VIAL IV PRN ×2 (10:18→20:08)
[2018-07-12 12:29] VITALS: BP 133/76
[2018-07-12 12:57] LABS: HEMATOCRIT. 30.5 % (36.0-48.0); HEMOGLOBIN. 9.4 g/dL (12.0-16.0); MEAN CORPUSCULAR HEMOGLOBIN 21.9 pg (28.0-32.0); MEAN CORPUSCULAR VOLUME 70.8 fL (81.0-99.0); MEAN PLATELET VOLUME 8.6 fl (7.4-10.4); PLATELET 253 x1000/uL (130-400); RED BLOOD CELL COUNT 4.31 mill/uL (4.2-5.4); RED CELL DISTRIBUTION WIDTH 17.8 % (11.6-14.6)
[2018-07-12 13:32] LABS: CHLORIDE 104 mEq/L (98-107)
[2018-07-12 13:41] LABS: PLATELET ESTIMATE NORMAL
[2018-07-12] MEDS ORDERED: MORPHINE SULFATE 4 MG/ML CPJ (NOT FOR IM USE) IV NR (15:54)
[2018-07-12 16:36] VITALS: BP 146/81
[2018-07-12] MEDS: RIVAROXABAN 20 MG TABLET PO SCH (18:57)
[2018-07-12] MEDS: AMLODIPINE 5MG TABLET PO SCH (18:58)
[2018-07-12] MEDS: CEFEPIME 2,000 MG in DEXT 5% WATER 100 ML IV SCH (18:58)
[2018-07-12 20:00] VITALS: BP 153/79
[2018-07-13] VITALS: BP 135/77
[2018-07-13] MEDS: MORPHINE SULFATE 4 MG/ML CPJ (NOT FOR IM USE) IV PRN ×3 (00:04→09:22)
[2018-07-13] MEDS: ZOLPIDEM TARTRATE 5MG TABLET PO PRN (00:05)
[2018-07-13] MEDS: DIPHENHYDRAMINE 50MG/ML VIAL IV PRN ×2 (04:17→15:06)
[2018-07-13] MEDS: CEFEPIME 2,000 MG in DEXT 5% WATER 100 ML IV SCH ×2 (05:29→19:09)
[2018-07-13] MEDS: CLINDAMYCIN 900 MG in DEXTROSE 5% WATER 50 ML IV SCH ×2 (06:43→12:56)
[2018-07-13 08:00] VITALS: BP 161/87
[2018-07-13] MEDS: GABAPENTIN 300MG CAPSULE PO SCH ×3 (09:22→16:44)
[2018-07-13] MEDS: AMLODIPINE 5MG TABLET PO SCH ×2 (09:22→16:44)
[2018-07-13 12:00] VITALS: BP 125/86
[2018-07-13] MEDS: HYDROMORPHONE HCL/PF 2MG/ML CPJ IV PRN ×2 (12:49→21:09)
[2018-07-13 16:00] VITALS: BP 136/81
[2018-07-13] MEDS: HYDROCODONE/ACETAMINOPHEN 5/325MG TABLET PO SCH ×2 (16:46→20:15)
[2018-07-13] MEDS: RIVAROXABAN 20 MG TABLET PO SCH (16:47)
[2018-07-13 20:10] VITALS: BP 154/89
[2018-07-13] MEDS ORDERED: ONDANSETRON HCL 4MG/2ML INJ IV PRN (23:15)
[2018-07-14] VITALS: BP 135/61
[2018-07-14] MEDS: HYDROCODONE/ACETAMINOPHEN 5/325MG TABLET PO SCH ×7 (00:07→23:36)
[2018-07-14] MEDS: HYDROMORPHONE HCL/PF 2MG/ML CPJ IV PRN ×4 (01:50→20:40)
[2018-07-14 04:00] VITALS: BP 120/61
[2018-07-14 08:00] VITALS: BP 143/87
[2018-07-14] MEDS: GABAPENTIN 300MG CAPSULE PO SCH ×3 (09:11→17:52)
[2018-07-14] MEDS: AMLODIPINE 5MG TABLET PO SCH ×2 (09:11→17:49)
[2018-07-14] MEDS: CEFEPIME 2,000 MG in DEXT 5% WATER 100 ML IV SCH ×2 (09:12→17:40)
[2018-07-14 10:50] LABS: BASOPHILS % 0.9 % (0.0-2.0); EOSINOPHILS % 2.5 % (0.0-5.0); HEMATOCRIT. 29.8 % (36.0-48.0); HEMOGLOBIN. 9.3 g/dL (12.0-16.0); LYMPHOCYTES % 22.5 % (20.0-50.0); MEAN CORPUSCULAR HEMOGLOBIN 21.7 pg (28.0-32.0); MEAN CORPUSCULAR VOLUME 69.9 fL (81.0-99.0); MEAN PLATELET VOLUME 8.2 fl (7.4-10.4); MONOCYTES % 11.5 % (2.0-8.0); NEUTROPHILS % 62.6 % (40.0-76.0); PLATELET 284 x1000/uL (130-400); RED BLOOD CELL COUNT 4.26 mill/uL (4.2-5.4); RED CELL DISTRIBUTION WIDTH 17.7 % (11.6-14.6)
[2018-07-14 11:19] LABS: CHLORIDE 101 mEq/L (98-107)
[2018-07-14 12:00] VITALS: BP 144/76
[2018-07-14 16:00] VITALS: BP 144/86
[2018-07-14] MEDS: RIVAROXABAN 20 MG TABLET PO SCH (17:42)
[2018-07-14 20:00] VITALS: BP 125/51
[2018-07-15] VITALS: BP 124/72
[2018-07-15] MEDS: DIPHENHYDRAMINE 50MG/ML VIAL IV PRN ×3 (00:08→16:58)
[2018-07-15] MEDS: HYDROCODONE/ACETAMINOPHEN 5/325MG TABLET PO SCH ×6 (03:19→20:01)
[2018-07-15] MEDS: HYDROMORPHONE HCL/PF 2MG/ML CPJ IV PRN ×5 (03:27→21:45)
[2018-07-15 04:00] VITALS: BP 118/56
[2018-07-15] MEDS: CEFEPIME 2,000 MG in DEXT 5% WATER 100 ML IV SCH ×2 (05:56→17:13)
[2018-07-15 08:00] VITALS: BP 132/61
[2018-07-15] MEDS: GABAPENTIN 300MG CAPSULE PO SCH ×3 (08:55→17:13)
[2018-07-15] MEDS: AMLODIPINE 5MG TABLET PO SCH ×2 (08:56→17:14)
[2018-07-15 12:00] VITALS: BP 152/93
[2018-07-15 16:00] VITALS: BP 127/89
[2018-07-15] MEDS: RIVAROXABAN 20 MG TABLET PO SCH (17:14)
[2018-07-15 20:00] VITALS: BP 169/89
[2018-07-15] MEDS: ZOLPIDEM TARTRATE 5MG TABLET PO PRN (22:53)
[2018-07-16] VITALS: BP 131/81
[2018-07-16] MEDS: HYDROCODONE/ACETAMINOPHEN 5/325MG TABLET PO SCH ×4 (00:23→12:00)
[2018-07-16] MEDS: DIPHENHYDRAMINE 50MG/ML VIAL IV PRN ×3 (01:00→16:37)
[2018-07-16] MEDS: CEFEPIME 2,000 MG in DEXT 5% WATER 100 ML IV SCH (05:31)
[2018-07-16] MEDS: HYDROMORPHONE HCL/PF 2MG/ML CPJ IV PRN ×3 (06:23→16:08)
[2018-07-16 07:50] VITALS: BP 139/86
[2018-07-16] MEDS: GABAPENTIN 300MG CAPSULE PO SCH ×2 (08:23→13:54)
[2018-07-16] MEDS: AMLODIPINE 5MG TABLET PO SCH (08:23)
[2018-07-16 10:59] LABS: BASOPHILS % 0.6 % (0.0-2.0); EOSINOPHILS % 2.1 % (0.0-5.0); HEMATOCRIT. 31.9 % (36.0-48.0); LYMPHOCYTES % 18.6 % (20.0-50.0); MEAN CORPUSCULAR HEMOGLOBIN 22.1 pg (28.0-32.0); MEAN CORPUSCULAR VOLUME 70.5 fL (81.0-99.0); MEAN PLATELET VOLUME 8.9 fl (7.4-10.4); MONOCYTES % 10.2 % (2.0-8.0); NEUTROPHILS % 68.5 % (40.0-76.0); PLATELET 318 x1000/uL (130-400); RED BLOOD CELL COUNT 4.53 mill/uL (4.2-5.4); RED CELL DISTRIBUTION WIDTH 17.7 % (11.6-14.6)
[2018-07-16 11:19] LABS: CHLORIDE 100 mEq/L (98-107)
[2018-07-16 15:51] VITALS: BP 120/83
[2018-07-16 16:46] VITALS: BP 120/83
== END 2018-07-16 17:15 | disposition home health service (06) | DRG 197 ==
LOC: ER 14:57 → 6WST 18:21 → EDBEDREQTM 18:28 → EDBEDREQ 18:28 → EDBEDREQSVC 18:28 → ENRESERV 18:32
PROVIDERS: ADMIT Internal Medicine; ATTEND Internal Medicine
PROC: 0JBP0ZZ Excision of Left Lower Leg Subcutaneous Tissue and Fascia, Open Approach (ICD-10-PCS; principal; 2018-07-12 07:00)
PROC: 02HV33Z Insertion of Infusion Device into Superior Vena Cava, Percutaneous Approach (ICD-10-PCS; 2018-07-16)
PROC: B5181ZA Fluoroscopy of Superior Vena Cava using Low Osmolar Contrast, Guidance (ICD-10-PCS; 2018-07-16)
PROC: B548ZZA Ultrasonography of Superior Vena Cava, Guidance (ICD-10-PCS; 2018-07-16)
DX: I87.2 Venous insufficiency (chronic) (peripheral) (principal); E11.51 Type 2 diabetes mellitus with diabetic peripheral angiopathy without gangrene; B95.61 Methicillin susceptible Staphylococcus aureus infection as the cause of diseases classified elsewhere; B96.5 Pseudomonas (aeruginosa) (mallei) (pseudomallei) as the cause of diseases classified elsewhere; E66.01 Morbid (severe) obesity due to excess calories; D64.9 Anemia, unspecified; I10 Essential (primary) hypertension; B95.1 Streptococcus, group B, as the cause of diseases classified elsewhere; Z71.3 Dietary counseling and surveillance; Z79.2 Long term (current) use of antibiotics; Z68.28 Body mass index [BMI] 28.0-28.9, adult; Z88.6 Allergy status to analgesic agent; Z88.1 Allergy status to other antibiotic agents; Z79.01 Long term (current) use of anticoagulants; Z79.899 Other long term (current) drug therapy; Z90.49 Acquired absence of other specified parts of digestive tract; Z98.84 Bariatric surgery status; Z86.718 Personal history of other venous thrombosis and embolism
CPT/HCPCS: 36415; 36569; 71045; 73590; 76937; 77001; 80048; 80053; 81003; 83605; 83880; 84484; 85025; 85610; 87040; 87070; 87077; 87086; 87186; 87205; 93005; 93970; 96365; 96375; 99285; A4216; C1725; C1893; J0171; J0692; J1100; J1170; J1200; J1580; J1885; J2250; J2270; J2405; J2543; J2704; J3010; J3301; J3490; J7030; J7050; J7060

== ENCOUNTER 2019-02-06 12:23 | Inpatient (IN) | payer MEDICAID, OTHER ==
[~2019-02-06] VITALS: Ht 170.2 cm; Wt 120.7 kg
[~2019-02-06 12:23] MED LIST changes: +FURO40TA5 PO; +GABA-290 PO; +METO-539 PO; +TIZA4CAP6 PO
[2019-02-06] MEDS ORDERED: MORPHINE SULFATE 4 MG/ML CPJ (NOT FOR IM USE) IV STA (12:41)
[2019-02-06] MEDS ORDERED: DIPHENHYDRAMINE 50MG/ML VIAL IV ONE (12:45)
[2019-02-06 13:16] LABS: BASOPHILS % 0.9 % (0.0-2.0); EOSINOPHILS % 0.7 % (0.0-5.0); HEMATOCRIT. 26.3 % (36.0-48.0); HEMOGLOBIN. 7.9 g/dL (12.0-16.0); LYMPHOCYTES % 17.8 % (20.0-50.0); MEAN CORPUSCULAR HEMOGLOBIN 18.9 pg (28.0-32.0); MEAN PLATELET VOLUME 7.8 fl (7.4-10.4); MONOCYTES % 9.2 % (2.0-8.0); NEUTROPHILS % 71.4 % (40.0-76.0); PLATELET 307 x1000/uL (130-400); RED BLOOD CELL COUNT 4.18 mill/uL (4.2-5.4); RED CELL DISTRIBUTION WIDTH 18.2 % (11.6-14.6)
[2019-02-06 13:22] LABS: CHLORIDE 108 mEq/L (98-107)
[2019-02-06 13:35] LABS: PLATELET ESTIMATE NORMAL
[2019-02-06] MEDS ORDERED: CLINDAMYCIN 600 MG in DEXTROSE 5% WATER 50 ML IV ONE (13:45)
[2019-02-06] MEDS ORDERED: CLONIDINE 0.1MG TABLET PO PRN (16:00)
[2019-02-06] MEDS ORDERED: LORAZEPAM 2MG/ML CPJ IV PRN (16:00)
[2019-02-06] MEDS ORDERED: ONDANSETRON HCL 4MG/2ML INJ IV PRN (16:00)
[2019-02-06] MEDS ORDERED: GUAIFENESIN 200MG/10ML SUGAR FREE UDC PO PRN (16:00)
[2019-02-06] MEDS ORDERED: DOCUSATE SODIUM 100MG CAPSULE PO PRN (16:00)
[2019-02-06] MEDS ORDERED: MAGNESIUM/ALUMINUM HYDROXIDE/SIMETHICONE 30ML UDC PO PRN (16:00)
[2019-02-06] MEDS ORDERED: IPRATROPIUM/ALBUTEROL 0.5-3(2.5)MG/3ML NEB INH PRN (16:00)
[2019-02-06] MEDS ORDERED: ACETAMINOPHEN 325MG TABLET PO PRN (16:00)
[2019-02-06] MEDS: HYDROMORPHONE HCL/PF 2MG/ML CPJ IV PRN ×2 (18:34→21:50)
[2019-02-06] MEDS: HYDROCODONE/ACETAMINOPHEN 10/325MG TABLET PO PRN (19:50)
[2019-02-06] MEDS ORDERED: DEXTROSE 50% WATER 50ML SYRINGE IV PRN (20:00)
[2019-02-06] MEDS ORDERED: NA PHOS,M-B/NA PHOS,DI-BA ENEMA 118ML PR PRN (21:00)
[2019-02-06] MEDS ORDERED: HYDRALAZINE 20MG/ML VIAL IV PRN ×2 (21:20→23:59)
[2019-02-06 23:00] VITALS: BP 155/74
[2019-02-06] MEDS: BLOOD SUGAR DIAGNOSTIC STRIP TEST SCH (23:00)
[2019-02-06] MEDS: SODIUM CHLORIDE 0.9% INJ 3ML FLUSH IVF SCH (23:52)
[2019-02-06] MEDS: INSULIN LISPRO 100 UNITS/ML SUBCUT SCH (23:53)
[2019-02-07] MEDS ORDERED: CLINDAMYCIN 600 MG in DEXTROSE 5% WATER 50 ML IV SCH ×2
[2019-02-07] MEDS: DIPHENHYDRAMINE 50MG/ML VIAL IV PRN ×6 (00:38→21:40)
[2019-02-07] MEDS: HYDROMORPHONE HCL/PF 2MG/ML CPJ IV PRN ×6 (00:38→20:52)
[2019-02-07] MEDS: CLINDAMYCIN 600MG PREMIX 50 ML IV SCH ×4 (01:06→18:11)
[2019-02-07 01:55] VITALS: BP 155/74
[2019-02-07 04:00] VITALS: BP 134/78
[2019-02-07] MEDS: SODIUM CHLORIDE 0.9% INJ 3ML FLUSH IVF SCH ×3 (05:16→21:41)
[2019-02-07] MEDS: BLOOD SUGAR DIAGNOSTIC STRIP TEST SCH ×2 (06:21→12:20)
[2019-02-07 06:23] LABS: BASOPHILS % 0.4 % (0.0-2.0); EOSINOPHILS % 1.2 % (0.0-5.0); HEMATOCRIT. 25.4 % (36.0-48.0); HEMOGLOBIN. 7.7 g/dL (12.0-16.0); LYMPHOCYTES % 19.4 % (20.0-50.0); MEAN CORPUSCULAR VOLUME 62.8 fL (81.0-99.0); MEAN PLATELET VOLUME 8.5 fl (7.4-10.4); MONOCYTES % 9.7 % (2.0-8.0); NEUTROPHILS % 69.3 % (40.0-76.0); PLATELET 303 x1000/uL (130-400); RED BLOOD CELL COUNT 4.05 mill/uL (4.2-5.4); RED CELL DISTRIBUTION WIDTH 18.3 % (11.6-14.6)
[2019-02-07 06:36] LABS: CHLORIDE 107 mEq/L (98-107)
[2019-02-07 06:45] LABS: CREATINE KINASE 140 IU/L (26-192)
[2019-02-07 06:48] LABS: CREATINE KINASE MB FRACTION < 1.0 ng/mL (0.5-3.6)
[2019-02-07 07:50] VITALS: BP 114/65
[2019-02-07] MEDS: INSULIN LISPRO 100 UNITS/ML SUBCUT SCH ×2 (07:50→12:50)
[2019-02-07 11:56] VITALS: BP 137/84
[2019-02-07] MEDS ORDERED: INFLUENZA VIRUS VACCINE(AFLURIA) 0.5ML SYR IM ONE (12:00)
[2019-02-07] MEDS: HYDROCODONE/ACETAMINOPHEN 10/325MG TABLET PO PRN (15:46)
[2019-02-07 15:53] LABS: UCG SCREEN NEGATIVE
[2019-02-07 16:02] VITALS: BP 138/85
[2019-02-07 20:00] VITALS: BP 145/74
[2019-02-07] MEDS: RIVAROXABAN 20 MG TABLET PO SCH (20:33)
[2019-02-08] VITALS: BP 130/72
[2019-02-08] MEDS: CLINDAMYCIN 600MG PREMIX 50 ML IV SCH ×4 (00:19→17:27)
[2019-02-08] MEDS: DIPHENHYDRAMINE 50MG/ML VIAL IV PRN ×4 (00:35→14:30)
[2019-02-08] MEDS: HYDROMORPHONE HCL/PF 2MG/ML CPJ IV PRN ×4 (00:36→14:30)
[2019-02-08 04:00] VITALS: BP 126/72
[2019-02-08] MEDS: SODIUM CHLORIDE 0.9% INJ 3ML FLUSH IVF SCH ×2 (05:43→13:16)
[2019-02-08 07:27] LABS: CHLORIDE 108 mEq/L (98-107)
[2019-02-08 08:29] VITALS: BP 160/91
[2019-02-08 12:00] VITALS: BP 160/91
[2019-02-08 13:48] LABS: HEMATOCRIT 25.8 % (36.0-48.0); HEMOGLOBIN 7.9 g/dL (12.0-16.0); MEAN CORPUSCULAR HEMOGLOBIN 19.2 pg (28.0-32.0); MEAN CORPUSCULAR VOLUME 62.8 fL (81.0-99.0); PLATELET 280 x1000/uL (130-400); RED CELL DISTRIBUTION WIDTH 18.1 % (11.6-14.6)
[2019-02-08 16:03] VITALS: BP 152/95
[2019-02-08] MEDS ORDERED: RIVAROXABAN 10 MG TABLET PO SCH (17:00)
[2019-02-08] MEDS: RIVAROXABAN 20 MG TABLET PO SCH (17:25)
[2019-02-08 18:03] VITALS: BP 152/94
== END 2019-02-08 18:55 | disposition home or self-care (01) | DRG 197 ==
LOC: ER 12:23 → 6WST 13:49 → EDBEDREQ 13:55 → ENRESERV 20:55
PROVIDERS: ADMIT Internal Medicine; ATTEND Internal Medicine
PROC: 02HV33Z Insertion of Infusion Device into Superior Vena Cava, Percutaneous Approach (ICD-10-PCS; principal; 2019-02-08)
PROC: B548ZZA Ultrasonography of Superior Vena Cava, Guidance (ICD-10-PCS; 2019-02-08)
PROC: B5181ZA Fluoroscopy of Superior Vena Cava using Low Osmolar Contrast, Guidance (ICD-10-PCS; 2019-02-08)
DX: I87.2 Venous insufficiency (chronic) (peripheral) (principal); D68.59 Other primary thrombophilia; E11.621 Type 2 diabetes mellitus with foot ulcer; I82.413 Acute embolism and thrombosis of femoral vein, bilateral; E66.01 Morbid (severe) obesity due to excess calories; L97.229 Non-pressure chronic ulcer of left calf with unspecified severity; D64.9 Anemia, unspecified; G89.29 Other chronic pain; I10 Essential (primary) hypertension; Z88.6 Allergy status to analgesic agent; Z88.1 Allergy status to other antibiotic agents; Z79.01 Long term (current) use of anticoagulants; Z79.899 Other long term (current) drug therapy; Z90.49 Acquired absence of other specified parts of digestive tract; Z98.84 Bariatric surgery status; Z68.41 Body mass index [BMI] 40.0-44.9, adult
CPT/HCPCS: 36415; 36569; 36573; 80048; 81025; 82550; 82553; 84484; 85027; 87070; 87077; 87186; 93970; 96365; 96375; 99285; C1725; C1893; J0360; J1170; J1200; J2270; J3490; J7040; J7060